=== PATIENT | female | born 1990 | race Caucasian/White ===

== ENCOUNTER 2017-11-24 05:17 | Inpatient (IN) | payer BC ==
[2017-11-24 12:19] LABS: ABS Basophils 0 10^3/ul (0-0.2); ABS Eosinophils 0 10^3/ul (0-0.6); ABS Lymphocytes 2.2 10^3/ul (1.0-4.8); ABS Neutrophils 13.1 10^3/ul (1.5-7.7); ABS Nucleated RBC 0 10^3/ul; Eosinophil % 0.1 % (0-6); Hematocrit 36 % (35-47); Hemoglobin 12.8 g/dl (12.0-16.0); Lymphocyte % 13.6 % (25-47); Mean Corpuscular HGB Conc 35 g/dl (31-36); Mean Corpuscular Hemoglobin 32 pg (27-31); Mean Corpuscular Volume 91 fL (80-97); Mean Platelet Volume 7.5 um3 (7.4-10.4); Nucleated Red Blood Cells % 0.1; Platelet Count 436 10^3/ul (150-450); Red Blood Count 4.02 10^6/ul (4.00-5.40); Red Cell Distribution Width 13 % (10.5-15); White Blood Count 16.4 10^3/ul (3.5-10.8)
[2017-11-24] MEDS ORDERED: OBEPIDURAL* 250 ML EPIDURAL ONE (12:20)
[2017-11-24] MEDS ORDERED: Phenylephrine IV* 40 MCG/ML 10 ML SYRINGE IV PUSH PRN ×2 (12:56)
[2017-11-24] MEDS ORDERED: Famotidine TAB* 20 MG PO PRN (12:56)
[2017-11-24] MEDS ORDERED: Sodium Citrate/Citric Acid* 15 ML UDC PO PRN (12:56)
[2017-11-24] MEDS ORDERED: EPHEDrine (Pressors)* 50 MG/ML VIAL IV PUSH PRN ×2 (12:56)
[2017-11-24] MEDS ORDERED: OBEPIDURAL* 250 ML EPIDURAL SCH (13:00)
[2017-11-24] MEDS ORDERED: Sodium Citrate/Citric Acid* 15 ML UDC ONE (13:10)
--- NOTE | 2017-11-24 15:08 | HP ---
General Information - Reason for Visit Pt had membranes stripped in the office yesterday and started contractions early this am. They became more regular around 4am. Every 2-5min. Minimal bloody show. No loss of fluid. Good movement. - General Information Maternal Age: 27 Grav: 1 Para: 0 SAB: 0 IEA: 0 Estimated Due Date: 11/23/17 Determined By: LMP Maternal Blood Type and Rh: A Negative - Results this Serology/RPR Result: Non-Reactive Rubella Result: Immune HBsAg Result: Negative HIV Result: Negative GBS Culture Result: Positive Past Medical History Delivery History: Hx Complicated Vaginal Delivery - vacuum assisted Pertinent Past Medical History: Non-Contributory Pertinent Past Surgical History: See Records Pertinent Family History: Non-Contributory - Antepartal Records Antepartal Records: Reviewed, Uncomplicated Review of Systems Constitutional: Uncomfortable - with contractions CV Complaint: No Respiratory: Shortness of Breath: No Gastrointestinal: No Nausea/Vomiting, Normal Bowel Movement Genitourinary: No Leaking Fluid, Spotting Musculoskeletal: Contractions Movement: Normal Exam Allergies/Adverse Reactions: Allergies No Known Allergies Allergy (Verified 11/24/17 05:41) Lab Values - Entire Visit: Laboratory Tests 11/24/17 11/24/17 11:55 11:55 WBC 16.4 H RBC 4.02 Hgb 12.8 Hct 36 MCV 91 MCH 32 H MCHC 35 RDW 13 Plt Count 436 MPV 7.5 Neut % (Auto) 79.8 Lymph % (Auto) 13.6 L [place] % (Auto) 6.2 Eos % (Auto) 0.1 Baso % (Auto) 0.3 Absolute Neuts (auto) 13.1 H Absolute Lymphs (auto) 2.2 Absolute Monos (auto) 1.0 H Absolute Eos (auto) 0 Absolute Basos (auto) 0 Absolute Nucleated RBC 0 Nucleated RBC % 0.1 Blood Type A Negative Antibody Screen Negative - Measurements Height: 5 ft 5 in Weight: 196 lb Weight in lbs: 196.622777 Body Mass Index (BMI): 32.5 Pre- Weight: 150 lb 0.002 oz Weight Gained This : 45.999 lbs and 0.014 ozs - Exam Breast: Breast Exam Deferred Extremities: No Edema Heart: Normal Rhythm/Heart Sounds HEENT: No Significant Findings Rectal: Rectal Exam Deferred Targeted Exam Findings Cervical Exam: 2cm Effacement: 70% Station: -3 Presenting Part: Vertex Membrane Status: Intact EFM Findings - External Monitor Findings Baseline Heart Rate: 140 External Monitor Findings: Accelerations Present, No Pattern of Variable or Late Decelerations, Variability Moderate, Baseline Stable Contractions: Irregular - q2-5 Assessment/Plan - Assessment @40.1wks in early labor. GBS neg. - Plan Plan: Observe
[2017-11-24] MEDS ORDERED: fentaNYL* 50 MCG/ML 2 ML VIAL (100 MCG VIAL) ONE ×2 (17:03→19:02)
[2017-11-24] MEDS ORDERED: ceFAZolin 2 GM PREMIX (*) 2 GM/50 ML BAG IVPB ONE (18:32)
[2017-11-24] MEDS ORDERED: KETAMINE HCL* 50 MG/ML 10 ML VIAL ONE (19:02)
[2017-11-24] MEDS ORDERED: Midazolam* 1 MG/ML 5 ML VIAL (5 MG) ONE (19:02)
[2017-11-24] MEDS ORDERED: Morphine PF AMP (0.5MG/ML)* 5 MG/10 ML AMP ONE (19:03)
[2017-11-24] MEDS ORDERED: Naloxone* 0.4 MG/ML 1 ML VIAL IV PRN ×2 (19:09→19:46)
[2017-11-24] MEDS ORDERED: fentaNYL* 50 MCG/ML 2 ML VIAL (100 MCG VIAL) IV PRN (19:09)
[2017-11-24] MEDS ORDERED: PROCHLORPERAZINE INJ 5 MG/ML 2 ML VIAL IV PRN (19:46)
[2017-11-24] MEDS ORDERED: Naloxone* 2 MG in NS 0.9% 250 ML* 250 ML IV PRN (19:46)
[2017-11-24] MEDS ORDERED: Nalbuphine* 10 MG/ML 1 ML VIAL IV PRN (19:46)
[2017-11-24] MEDS ORDERED: Ondansetron INJ* 2 MG/ML VIAL IV PRN (19:46)
[2017-11-24] MEDS ORDERED: diPHENhydraMINE IV* 50 MG/ML 1 ml VIAL (BENADRYL) IV PRN (19:46)
[2017-11-24] MEDS ORDERED: DiMENhydriNATE IV* 50 MG/ML VIAL IV PUSH PRN (19:46)
[2017-11-24] MEDS ORDERED: oxyCODONE/Acetamin 5/325 MG* TAB PO PRN (19:46)
[2017-11-24] MEDS ORDERED: Ketorolac INJ* 30 MG/ML 1 ML VIAL ONE (20:22)
[2017-11-24] MEDS ORDERED: Lidocaine 2% PF* 10 ML AMP ONE (20:22)
[2017-11-24] MEDS ORDERED: DiMENhydriNATE IV* 50 MG/ML VIAL ONE (20:22)
[2017-11-24] MEDS ORDERED: Scopolamine 1.5 mg* PATCH ONE (20:22)
[2017-11-24] MEDS ORDERED: Ondansetron INJ* 2 MG/ML VIAL ONE (20:22)
[2017-11-24] MEDS ORDERED: Lidocaine 2% EPI 1:200000 MPF*10-20 ML VIAL ONE (20:22)
[2017-11-24] MEDS ORDERED: PROCHLORPERAZINE INJ 5 MG/ML 2 ML VIAL ONE (20:22)
[2017-11-24] MEDS ORDERED: Dexamethasone IV* 4 MG/ML 1 ML (4 MG) ONE (20:22)
[2017-11-24] MEDS ORDERED: EPHEDrine (Pressors)* 50 MG/ML VIAL ONE (20:22)
[2017-11-24] MEDS ORDERED: OXYTOCIN* 10 UNITS/ML 1 ML VIAL ONE (20:29)
[2017-11-24] MEDS ORDERED: Glycerin ADULT SUPP PR PRN (20:45)
[2017-11-24] MEDS ORDERED: Dibucaine 1% 28.35 GM TUBE PR PRN (20:45)
[2017-11-24] MEDS ORDERED: Witch Hazel PAD* JAR TOPICAL PRN (20:45)
[2017-11-24] MEDS ORDERED: Zolpidem TAB* 5 MG PO PRN (20:45)
--- NOTE | 2017-11-25 02:52 | OP ---
DATE OF OPERATION: 11/24/17 - ROOM #105 DATE OF : 86 SURGEON: Mary Garber MD. FAST FOOD MANAGER: Dr. Iglesias and Swati Musa CNM ANESTHESIA: Epidural. PRE-OP DIAGNOSIS: Intrauterine gestation at 40 and 1 week gestational age, category 2 heart tracing, remote from delivery, excessive vaginal bleeding. POST-OP DIAGNOSIS: Intrauterine gestation at 40 and 1 week gestational age, category 2 heart tracing, remote from delivery, excessive vaginal bleeding. OPERATIVE PROCEDURE: Primary lower transverse section. FLUIDS: Crystalloid. ESTIMATED BLOOD LOSS: 800 mL. FINDINGS: Meconium stained fluid, some blood in the uterine cavity, male with asynclitic presentation, Apgars 9 and 10, weight 8 pounds 5 ounces. Placenta adherent to the uterus, normal uterus, ovaries and tubes. COMPLICATIONS: None. COUNTS: Correct. INDICATIONS: The patient presented in early labor and underwent ruptured membranes with progression into active labor. She receives an epidural, she progressed to 6 cm and prior to this time, she had had category 1 tracing, but then she experienced a prolonged decel about 3 to 4 minutes with several deep variables afterwards, she was found to be 6 cm and had a large amount of vaginal bleeding. This resolved, the heart tracing, had moderate variability and the decelerations were not recurrent. The bleeding became more minimal, so the patient was observed further. She eventually progressed to 7 cm , but had several more episodes of prolonged decelerations or deep variable decelerations as well as recurrent early decelerations. The variability did remain moderate. One final exam revealed blood clots in the posterior cervix as well as a swelling of the cervix. Therefore, discussion was had with the patient and her and the decision was made to proceed with section. Risks of were reviewed with the patient, including the risk of infection, bleeding, pain, and injuring nearby organs. Consent was signed, all her questions were answered. DESCRIPTION OF PROCEDURE: The patient was taken to the operating room where the epidural anesthesia was noted to be adequate. Son catheter was already in her bladder. SCDs were placed on her legs. She was prepped and draped in the dorsal supine position with a leftward tilt. A time-out was performed. A Pfannenstiel skin incision was then made with a scalpel and carried down to the underlying layer of fascia with the scalpel. The fascia was incised on either side of the midline and the fascial incision extended laterally with the Bender scissors. The inferior edge of the fascial incision was grasped with Ravi clamps, tented up, and dissected down bluntly. The superior edge of the fascial incision was then grasped with Ravi clamps, tented up, and dissected down bluntly. The peritoneum was entered bluntly and incision was extended laterally with blunt pressure. The bladder blade was inserted and a transverse incision was made in the lower uterine segment. The uterine incision was extended superiorly and inferiorly with blunt pressure. The 's head was fairly deep in the pelvis, was brought out through the uterine incision and the infant was then delivered with fundal pressure, followed by the shoulders and the rest of the body. The cord was clamped x2 and cut, and the baby was handed to the floral designer salesperson. Cord blood was collected. Attempts were made to deliver with fundal massage, but it was not delivering, so it was delivered with manual evacuation of the uterus, and it did appear to be adhering to the fundus of the uterus. Initially there was difficulty in exteriorizing the uterus, so it was left inside and the uterus was cleared of clots and debris and the uterine incision was closed with 0 Vicryl in a running locked fashion. Some bleeding was noted at the left edge of the uterine incision. Several [id number]-ce-cfhcr sutures were placed before good hemostasis was noted. Second layer of suture was then placed imbricating the first, however, more bleeding was noted. At this time, the uterus was able to be exteriorized, allowing for good visualization of the corner and another gsnfod-ih-umrol suture was placed, which resulted in excellent hemostasis. A pgbubh-pg-[id number] suture was also placed on the right side of the uterine incision where there was some bleeding. The abdomen was irrigated and the uterus was placed back into the abdominal cavity. The incision was inspected once again and good hemostasis was seen. The peritoneum was then closed with 3-0 Chromic in a running unlocked fashion. The fascia was closed with 0 Vicryl in a running unlocked fashion. The skin was closed with 4-0 Monocryl in a running subcuticular fashion. Mastisol and Steri-Strips were placed. The patient was cleaned, moved to the stretcher, and taken to the recovery room in stable condition. [id number]/[facility] #: [id number] SRINIVASAN
[2017-11-25 07:23] LABS: Hematocrit 27 % (35-47); Hemoglobin 9.6 g/dl (12.0-16.0); Mean Corpuscular HGB Conc 35 g/dl (31-36); Mean Corpuscular Hemoglobin 32 pg (27-31); Mean Corpuscular Volume 90 fL (80-97); Mean Platelet Volume 7.3 um3 (7.4-10.4); Platelet Count 328 10^3/ul (150-450); Red Blood Count 3.02 10^6/ul (4.00-5.40); Red Cell Distribution Width 13 % (10.5-15)
--- NOTE | 2017-11-25 07:58 | PN ---
Progress Note - Progress Note Date of Service: 11/25/17 Note: Anesthesia duramorph followup, good pain, no NV, neuro ok, s/p CS, continue oral meds.
[2017-11-25 08:16] LABS: ABS Basophils 0 10^3/ul (0-0.2); ABS Eosinophils 0 10^3/ul (0-0.6); ABS Lymphocytes 1.8 10^3/ul (1.0-4.8); ABS Monocytes 1.6 10^3/ul (0-0.8); ABS Neutrophils 22.5 10^3/ul (1.5-7.7); ABS Nucleated RBC 0 10^3/ul; Eosinophil % 0 % (0-6); Lymphocyte % 6.9 % (25-47); Nucleated Red Blood Cells % 0
[2017-11-25] MEDS: Docusate CAP* 100 MG PO SCH ×3 (09:14→20:40)
[2017-11-25] MEDS: Simethicone TAB* 80 MG TAB.CHEW PO SCH ×5 (09:14→22:09)
[2017-11-25] MEDS: Ibuprofen TAB* 600 MG PO PRN ×2 (09:15→16:43)
[2017-11-25] MEDS: Ferrous Gluconate TAB* 324 MG TAB PO SCH ×2 (09:15→20:40)
[2017-11-25] MEDS ORDERED: oxyCODONE/Acetamin 5/325 MG* TAB PO PRN (11:45)
[2017-11-25] MEDS ORDERED: Acetaminophen TAB* 325 MG PO PRN (11:45)
[2017-11-25] MEDS: oxyCODONE/Acetamin 5/325 MG* TAB PO PRN ×2 (14:20→20:40)
[2017-11-26] MEDS: oxyCODONE/Acetamin 5/325 MG* TAB PO PRN ×4 (01:30→18:03)
[2017-11-26] MEDS: Ibuprofen TAB* 600 MG PO PRN ×4 (01:30→22:45)
[2017-11-26] MEDS: Simethicone TAB* 80 MG TAB.CHEW PO SCH ×4 (08:07→21:30)
[2017-11-26] MEDS: Ferrous Gluconate TAB* 324 MG TAB PO SCH ×2 (08:08→21:30)
[2017-11-26] MEDS: Docusate CAP* 100 MG PO SCH ×3 (08:08→21:30)
[2017-11-27] MEDS: Ibuprofen TAB* 600 MG PO PRN ×2 (04:47→11:00)
[2017-11-27] MEDS: oxyCODONE/Acetamin 5/325 MG* TAB PO PRN ×2 (04:49→09:45)
[2017-11-27 08:55] VITALS: BP 109/66
[2017-11-27] MEDS: Docusate CAP* 100 MG PO SCH (09:44)
[2017-11-27] MEDS: Simethicone TAB* 80 MG TAB.CHEW PO SCH (09:44)
[2017-11-27] MEDS: Ferrous Gluconate TAB* 324 MG TAB PO SCH (09:48)
[2017-11-27] MEDS ORDERED: Scopolamine PATCH Remove* 1 NOTE MISC PATCH OFF PRN (19:47)
== END 2017-11-27 11:41 | disposition home or self-care (01) | DRG 540 ==
LOC: MCHOBOUT 05:17 → MCHOB 10:02
PROVIDERS: ADMIT Obstetrics & Gynecology; ATTEND Obstetrics & Gynecology
PROC: 10907ZC Drainage of Amniotic Fluid, Therapeutic from Products of Conception, Via Natural or Artificial Opening (ICD-10-PCS; 2017-11-24)
PROC: 10D00Z1 Extraction of Products of Conception, Low, Open Approach (ICD-10-PCS; principal; 2017-11-24 19:15)
DX: O76 Abnormality in fetal heart rate and rhythm complicating labor and delivery (principal); O48.0 Post-term pregnancy; O67.8 Other intrapartum hemorrhage; O77.0 Labor and delivery complicated by meconium in amniotic fluid; O90.81 Anemia of the puerperium; D64.9 Anemia, unspecified; Z37.0 Single live birth; Z3A.40 40 weeks gestation of pregnancy
CPT/HCPCS: 36415; 85025; 86850; 86900; 86901; 88307; A9270-GY; J0690; J0780; J1100; J1240; J1885; J2001; J2250; J2405; J2590; J3010